=== PATIENT | female | born 1990 | race African-American/Black ===

== ENCOUNTER 2016-06-30 17:43 | Emergency (ER) | payer BC ==
--- NOTE | 2016-06-30 17:50 | ER Document Report ---
ED Medical Screen (RME) - General Stated Complaint: ABDOMINAL PAIN Time seen by provider: 17:50 Mode of Arrival: Medic Information source: Patient Notes: 25-year-old female with sudden onset of right crampy middle and right lower quadrant abdominal pain since 2:30. It became more intense since sharper at times. LMP this week. Eyes . Gave her the urge to urinate. She had a bowel movement which did not help the pain. She also made herself vomit which did not help. She is nauseated. No history of kidney stones. Looks very uncomfortable with this crampy pain, and is having trouble sitting still. I have consulted with the supervisory physician Dr. Roa per [facility] Guidelines. I have greeted and performed a rapid initial assessment of this patient. A comprehensive ED assessment, evaluation of the patient, analysis of test results , and completion of the medical decision making process will be contacted by additional ED providers. TRAVEL OUTSIDE OF THE [place] IN LAST 30 DAYS: No - Related Data Allergies/Adverse Reactions: No Known Allergies Allergy (Verified 06/30/16 18:01) Past Medical History - Past Medical History Cardiac Medical History: Reports: Hx Hypertension - pregannt Denies: Hx Atrial Fibrillation, Hx Congestive Heart Failure, Hx Coronary Artery Disease, Hx Heart Attack, Hx Hypercholesterolemia, Hx Peripheral Vascular Disease, Hx Pulmonary Embolism, Hx Heart Murmur Pulmonary Medical History: Reports: Hx Asthma Denies: Hx Sleep Apnea, Hx Tuberculosis Neurological Medical History: Denies: Hx Cerebrovascular Accident, Hx Seizures Endocrine Medical History: Reports: Hx Diabetes Mellitus Type 2 - diabetes Renal/ Medical History: Denies: Hx Kidney Stones GI Medical History: Denies: Hx Crohn's Disease, Hx Gastroesophageal Reflux Disease, Hx Hiatal Hernia, Hx Irritable Bowel, Hx Liver Failure, Hx Ulcer Musculoskeltal Medical History: Denies Hx Fibromyalgia Traumatic Medical History: Denies: Hx Fractures Infectious Medical History: Past Surgical History: Reports: Hx Appendectomy, Hx Section - x3, Hx Cholecystectomy, Hx Tonsillectomy. Denies: Hx Bowel Surgery, Hx Colostomy, Hx Coronary Artery Bypass Graft, Hx Gastric Bypass Surgery, Hx Herniorrhaphy, Hx Mastectomy, Hx Pacemaker, Hx Tubal Ligation - Immunizations Immunizations up to date: Yes Hx Diphtheria, Pertussis, Tetanus Vaccination: No Physical Exam - Vital signs Vitals: Temp Pulse Resp BP Pulse Ox 97.9 F 90 20 123/94 H 99 06/30/16 17:54 06/30/16 17:54 06/30/16 17:54 06/30/16 17:54 06/30/16 17:54 Course - Vital Signs Vital signs: Temp Pulse Resp BP Pulse Ox 97.9 F 90 20 123/94 H 99 06/30/16 17:54 06/30/16 17:54 06/30/16 17:54 06/30/16 17:54 06/30/16 17:54
[2016-06-30] MEDS ORDERED: OXYCODONE-ACETAMINOPHEN 5-325 MG TABLET PO ONE (17:53)
[2016-06-30] MEDS ORDERED: ONDANSETRON 4 MG TAB.RAPDIS PO ONE (17:53)
[2016-06-30] MEDS ORDERED: KETOROLAC TROMETHAMINE 60 MG/2 ML SDV IM ONE (17:55)
[2016-06-30 18:31] LABS: ABSOLUTE BASOPHILS # (AUTO) 0.1 10^3/uL (0.0-0.2); ABSOLUTE EOSINOPHILS # (AUTO) 0.4 10^3/uL (0.0-0.6); ABSOLUTE LYMPHOCYTES (AUTO) 2.5 10^3/uL (0.5-4.7); ABSOLUTE MONOCYTES (AUTO) 0.6 10^3/uL (0.1-1.4); ABSOLUTE NEUT (AUTO) 9.5 10^3/uL (1.7-8.2); BASOPHILS % (AUTO) 0.5 % (0-2); HEMATOCRIT 43.8 % (36.0-47.0); HEMOGLOBIN 14.5 g/dL (12.0-15.5); HGB HCT DIFFERENCE -0.3; LYMPHOCYTES % (AUTO) 19.3 % (13-45); MEAN CORPUSCULAR HEMOGLOBIN 28.5 pg (27.0-33.4); MEAN CORPUSCULAR VOLUME 87 fl (80-97); MONOCYTES % (AUTO) 4.9 % (3-13); RED BLOOD COUNT 5.06 10^6/uL (3.72-5.28); RED CELL DISTRIBUTION WIDTH 13.6 % (11.5-14.0); SEGMENTED NEUTROPHILS % (AUTO) 72.3 % (42-78); WHITE BLOOD COUNT 13.1 10^3/uL (4.0-10.5)
[2016-06-30 18:36] LABS: APPEARANCE,URINE SLIGHTLY-CLOUDY; BILIRUBIN,URINE NEGATIVE (NEGATIVE); GLUCOSE, URINE NEGATIVE (NEGATIVE); KETONES,URINE NEGATIVE (NEGATIVE); LEUKOCYTE ESTERASE,URINE NEGATIVE (NEGATIVE); NITRITE,URINE NEGATIVE (NEGATIVE); PROTEIN,URINE NEGATIVE (NEGATIVE); URINE SPECIFIC GRAVITY 1.018; UROBILINOGEN,URINE NEGATIVE mg/dL (<2.0)
[2016-06-30 18:54] LABS: ALANINE AMINOTRANSFERASE 27 U/L (9-52); ALBUMIN 3.9 g/dL (3.5-5.0); ALKALINE PHOSPHATASE 63 U/L (38-126); ANION GAP 10 (5-19); ASPARTATE AMINO TRANSFERASE 17 U/L (14-36); BILIRUBIN,TOTAL 0.5 mg/dL (0.2-1.3); BLOOD UREA NITROGEN 14 mg/dL (7-20); CARBON DIOXIDE 25 mmol/L (22-30); CHLORIDE 107 mmol/L (98-107); CREATININE RESULT 0.81 mg/dL (0.52-1.25); GLUCOSE 107 mg/dL (75-110); POTASSIUM 4.1 mmol/L (3.6-5.0); SODIUM 141.7 mmol/L (137-145); TOTAL PROTEIN 6.5 g/dL (6.3-8.2)
--- NOTE | 2016-06-30 19:41 | ER Document Report ---
ED GI/ - General Chief Complaint: Abdominal Pain Stated Complaint: ABDOMINAL PAIN Mode of Arrival: Medic Notes: Patient is experiencing severe abdominal pains that began about 4 PM this afternoon. As they are sharp pains and located mostly in the right upper quadrant and sometimes radiate down into the right lower quadrant of the abdomen. She did not have any nausea or vomiting, but induced vomiting to see if it might help her pain. She also had a bowel movement this afternoon, but that did not help either. Denies UTI symptoms. Denies URI symptoms. Does not have any fevers. Patient had her gallbladder removed 5 years ago. She's had a couple of episodes like this in the past and no one has been able to find out a cause for these episodes. Patient is also had a tubal ligation. 3 C-sections. TRAVEL OUTSIDE OF THE [place] IN LAST 30 DAYS: No - Related Data Allergies/Adverse Reactions: No Known Allergies Allergy (Verified 06/30/16 18:01) Past Medical History - General Information source: Patient - Social History Smoking Status: Current Every Day Smoker Cigarette use (# per day): Yes Chew tobacco use (# tins/day): No Frequency of alcohol use: None Drug Abuse: None Family History: Arthritis, CAD, CVA, DM, Hyperlipidemia, Hypertension, Malignancy Patient has suicidal ideation: No Patient has homicidal ideation: No - Past Medical History Cardiac Medical History: Reports: Hx Hypertension - pregannt Pulmonary Medical History: Reports: Hx Asthma Endocrine Medical History: Reports: Hx Diabetes Mellitus Type 2 - diabetes GI Medical History: Musculoskeltal Medical History: Infectious Medical History: Past Surgical History: Reports: Hx Section - x3, Hx Cholecystectomy, Hx Tonsillectomy - Immunizations Immunizations up to date: Yes Hx Diphtheria, Pertussis, Tetanus Vaccination: No Hx Pneumococcal Vaccination: 03/03/10 Review of Systems - Review of Systems Notes: REVIEW OF SYSTEMS: CONSTITUTIONAL : Denies fever. EENT: Denies eye, ear, nose or mouth or throat pain or other symptoms except patient says that she had a fractured tooth in the right upper mouth that broke apart and drained some pus a few days ago. She has an appointment to be seen by a dentist for this condition later this coming week. No significant swelling of the gum or anything to suggest a current abscess collection. CARDIOVASCULAR: Denies chest pain. RESPIRATORY: Denies cough, chest congestion, or shortness of breath. GASTROINTESTINAL: See history of present illness. GENITOURINARY: Denies difficulty or painful urinating, urinary frequency, blood in urine. MUSCULOSKELETAL: Denies back or neck pain. Denies joint pain or swelling. SKIN: Denies rash or skin lesions. ALL OTHER SYSTEMS REVIEWED AND NEGATIVE. Physical Exam - Vital signs Vitals: Temp Pulse Resp BP Pulse Ox 97.9 F 90 20 123/94 H 99 06/30/16 17:54 06/30/16 17:54 06/30/16 17:54 06/30/16 17:54 06/30/16 17:54 Interpretation: Normal - Notes Notes: PHYSICAL EXAMINATION: GENERAL: Well-appearing, in no acute distress. Vital signs are all normal. Patient seems comfortable at this time. She received an injection of 60 mg of Toradol IM, 2 Zofran 4 mg by mouth, and 2 Percocets when she was assessed by the nurse practitioner initially. NECK: Normal range of motion, supple. LUNGS: Breath sounds clear and equal bilaterally. HEART: Regular rate and rhythm without murmurs. ABDOMEN: Soft, mild tenderness in the right upper quadrant, but no guarding or rebound. No real significant tenderness in the right lower quadrant. BACK: No tenderness throughout entire back. EXTREMITIES: Normal range of motion without pain. NEUROLOGICAL: Normal speech, normal gait. Normal sensory, motor, and reflex exams. Awake, alert, and oriented x3. SKIN: Warm, dry, no rashes. Course - Vital Signs Vital signs: Temp Pulse Resp BP Pulse Ox 97.9 F 90 20 123/94 H 99 06/30/16 17:54 06/30/16 17:54 06/30/16 17:54 06/30/16 17:54 06/30/16 17:54 - Laboratory Result Diagrams: 06/30/16 18:05 06/30/16 18:05 Laboratory results interpreted by me: 06/30/16 18:05 WBC 13.1 H Absolute Neutrophils 9.5 H 06/30/16 19:59 Leukocytosis of 13,100 noted. - Diagnostic Test Radiology reviewed: Image reviewed, Reports reviewed - CT scan of the abdomen and pelvis without contrast showed no abnormalities. A normal appendix is visualized. Gallbladder is surgically absent. No other significant findings. Discharge - Discharge Clinical Impression: Abdominal pain Qualifiers: Abdominal location: right upper quadrant Qualified Code(s): R10.11 - Right upper quadrant pain Condition: Stable Disposition: HOME, SELF-CARE Additional Instructions: ABDOMINAL PAIN: There are many causes of abdominal pain. Pain can mean a serious problem requiring surgery (such as appendicitis). It can also be an innocent problem that goes away on its own (such as a viral infection). Often, time must pass to determine the cause of pain. The physician does not feel that hospitalization is necessary, at present. Things may change within the next 24 hours. Call the doctor or come back for re- examination if any problems occur, such as: (1) Pain that becomes more severe, steady, or becomes concentrated in one specific area. Also, pain that is more severe with movement or coughing. (2) Vomiting that persists or becomes more frequent. (3) Blood in the vomitus, urine, or bowel movements. Blood in the stool may have a tarry or black appearance. (4) Shaking chills or fever greater than 100 degrees F. (5) The abdomen becomes more distended or swollen. (6) Bowel movements cease. (7) Failure to improve as expected. NORMAL EXAM AND WORKUP: At this time, except for a slight elevation in your white cell count called leukocytosis, your examination and workup show no significant abnormality. No significant abnormal physical findings are noted. All laboratory, EKG, and imaging (x-ray, CT scans, ultrasound) studies that were ordered show no significant abnormality. Although your examination and all studies that were ordered showed no significant abnormal finding, there are no examinations and no studies that are 100% accurate. There is always the possibility that some abnormality could exist and not be detected with physical examination or within the limits and capabilities of laboratory and other studies. You should return or follow up as you were instructed on your visit today for further evaluation if your symptoms do not resolve. Leukocytosis Leukocytosis is an elevation or increase in the number of white blood cells. Nearly all leukocytosis is due to one type of white blood cell, the polymorphonuclear leukocyte (PMN). These conditions are more accurately referred to as neutrophilia. The most common and important cause of neutrophilia is infection, and most infections cause neutrophilia. The degree of elevation often indicates the severity of the infection. Tissue damage from other causes raises the white count for similar reasons. Anand, infarction (cutting off the blood supply to a region of the body so that it dies), crush injuries, inflammatory diseases, poisonings, and severe diseases, like kidney failure and diabetic ketoacidosis, all cause neutrophilia. Counts almost as high occur in leukemoid (leukemia-like) reactions caused by infection and non-infectious inflammation. Drugs can also cause leukocytosis. Cortisone-like drugs prednisone, lithium , and NSAIDs are the most common offenders. Non-specific stresses also cause white blood cells to increase in the blood. Extensive testing of medical students reveals that neutrophilia accompanies every examination. Vigorous exercise and intense excitement also cause elevated white blood cell counts. TORADOL INJECTION: You have been given an injection of ketorolac tromethamine (Toradol). This is an excellent, safe drug for pain control. It also has potent antiinflammatory action. You should have significant pain relief within about one hour. Toradol is not addicting and is non-sedating. It does not interfere with driving or work. Call or return if you develop itching, hives, shortness of breath, or rash. ANTINAUSEA MEDICATION: You have been given a medication to suppress nausea and vomiting. This type of medication can be given as a shot, pill, or suppository. It will usually last for many hours. Pills and shots usually last six to eight hours, suppositories last about 12 hours. For the typical illness, only one or two doses of the medication may be necessary. Mild lightheadedness may occur. This type of medicine can cause drowsiness. Do not drive or operate dangerous machinery while under its influence. Do not mix with alcohol. See your doctor at once if you have muscle spasms or tightness, or uncontrollable motions (particularly of the neck, mouth, or jaw). Persistent vomiting or severe lightheadedness should also be evaluated by the physician. ORAL NARCOTIC MEDICATION: You have been given a prescription for pain control. This medication is a narcotic. It's best taken with food, as nausea can result if taken on an empty stomach. Don't operate machinery or drive within six hours of taking this medication. Do not combine this medicine with alcohol, or with any medication which can cause sedation (such as cold tablets or sleeping pills) unless you get permission from the physician. Narcotics tend to cause constipation. If possible, drink plenty of fluids and eat a diet high in fiber and fruits. FOLLOW-UP CARE: If you have been referred to a physician for follow-up care, call the physician s office for an appointment as you were instructed or within the next two days. If you experience worsening or a significant change in your symptoms, notify the physician immediately or return to the Emergency Department at any time for re-evaluation. Your CT scan was completely normal without any evidence of any abnormality requiring hospitalization or surgery. The only lab test that was abnormal was a slight elevation in your white cell count, perhaps due to some infection in your body. However, with the normal CT scan, I feel that you can be discharged home with pain medication and see how you do over the next day or 2. If you or no better on Saturday, return for us to reassess your condition. If you will get worse between now and Saturday, return for us to reassess your condition. Prescriptions: Oxycodone HCl/Acetaminophen [Percocet 5-325 mg Tablet] 1 - 2 tab PO Q4HP PRN # 15 tablet PRN Reason: Promethazine HCl [Phenergan 25 mg Tablet] 1 - 2 tab PO Q6HP PRN #15 tablet PRN Reason: Forms: Return to Work
[2016-06-30 19:56] VITALS: BP 122/81
== END 2016-06-30 19:58 | disposition home or self-care (01) ==
LOC: ER 17:43
DX: R10.11 Right upper quadrant pain (principal); R10.31 Right lower quadrant pain; F17.210 Nicotine dependence, cigarettes, uncomplicated; E11.9 Type 2 diabetes mellitus without complications; Z98.51 Tubal ligation status; Z90.49 Acquired absence of other specified parts of digestive tract
CPT/HCPCS: 99284; 96372; 36415; 87086; 83690; 84703; 85025; 80053; 81001; 76380; J1885; S0119

== ENCOUNTER 2016-09-22 04:56 | Emergency (ER) | payer BC ==
[2016-09-22 05:35] LABS: ABSOLUTE EOSINOPHILS # (AUTO) 0.3 10^3/uL (0.0-0.6); ABSOLUTE LYMPHOCYTES (AUTO) 2.3 10^3/uL (0.5-4.7); ABSOLUTE MONOCYTES (AUTO) 0.7 10^3/uL (0.1-1.4); ABSOLUTE NEUT (AUTO) 2.7 10^3/uL (1.7-8.2); BASOPHILS % (AUTO) 0.6 % (0-2); EOSINOPHILS % (AUTO) 4.4 % (0-6); HEMATOCRIT 38.3 % (36.0-47.0); HEMOGLOBIN 12.8 g/dL (12.0-15.5); HGB HCT DIFFERENCE 0.1; LYMPHOCYTES % (AUTO) 38.2 % (13-45); MEAN CORPUSCULAR HEMOGLOBIN 28.9 pg (27.0-33.4); MEAN CORPUSCULAR HGB CONC 33.5 g/dL (32.0-36.0); MEAN CORPUSCULAR VOLUME 86 fl (80-97); MONOCYTES % (AUTO) 10.9 % (3-13); RED BLOOD COUNT 4.43 10^6/uL (3.72-5.28); RED CELL DISTRIBUTION WIDTH 13.8 % (11.5-14.0); SEGMENTED NEUTROPHILS % (AUTO) 45.9 % (42-78)
[2016-09-22 08:27] LABS: APPEARANCE,URINE TURBID; BILIRUBIN,URINE NEGATIVE (NEGATIVE); GLUCOSE, URINE NEGATIVE (NEGATIVE); KETONES,URINE NEGATIVE (NEGATIVE); LEUKOCYTE ESTERASE,URINE TRACE (NEGATIVE); NITRITE,URINE NEGATIVE (NEGATIVE); PROTEIN,URINE NEGATIVE (NEGATIVE); URINE SPECIFIC GRAVITY 1.034; UROBILINOGEN,URINE NEGATIVE mg/dL (<2.0)
--- NOTE | 2016-09-22 08:44 | ER Document Report ---
ED General - General Chief Complaint: Rectal Pain Stated Complaint: BACK PAIN, HEADACHE Mode of Arrival: Ambulatory Information source: Patient Notes: Patient presents to the emergency department with complaints of upper and lower abdominal pain and rectal pain for the past 3-4 days. She also complains of vaginal pain for the for 1-2 days. She reports when she voids it feels irritated on the outside of her vaginal area. She denies vaginal bleeding. She reports pressure when she voids. She also complains of a headache for which she took Tylenol and didn't really help. She reports headache comes and goes. Patient reports she is approximately 7 weeks . She denies fever vomiting diarrhea. She denies trauma. TRAVEL OUTSIDE OF THE [place] IN LAST 30 DAYS: No - HPI Patient complains to provider of: patient presents to emergency department with complaints of abdominal pain Onset: Other - 3-4 days Onset/Duration: Waxing and waning Quality of pain: Achy, Other - sore Severity: Severe Pain Level: 4 Associated symptoms: None Exacerbated by: Other - voiding Relieved by: Denies Similar symptoms previously: No Recently seen / treated by doctor: No - Related Data Allergies/Adverse Reactions: No Known Allergies Allergy (Verified 06/30/16 18:01) Past Medical History - General Information source: Patient Last Menstrual Period: 07/25/16 - Social History Smoking Status: Never Smoker Cigarette use (# per day): No Frequency of alcohol use: None Drug Abuse: None Lives with: Family Family History: Arthritis, CAD, CVA, DM, Hyperlipidemia, Hypertension, Malignancy Patient has suicidal ideation: No Patient has homicidal ideation: No - Past Medical History Cardiac Medical History: Reports: Hx Hypertension - pregannt Denies: Hx Atrial Fibrillation, Hx Congestive Heart Failure, Hx Coronary Artery Disease, Hx Heart Attack, Hx Hypercholesterolemia, Hx Peripheral Vascular Disease, Hx Pulmonary Embolism, Hx Heart Murmur Pulmonary Medical History: Reports: Hx Asthma Denies: Hx Sleep Apnea, Hx Tuberculosis Neurological Medical History: Denies: Hx Cerebrovascular Accident, Hx Seizures Endocrine Medical History: Reports: Hx Diabetes Mellitus Type 2 - diabetes Renal/ Medical History: Denies: Hx Kidney Stones, Hx Peritoneal Dialysis GI Medical History: Denies: Hx Crohn's Disease, Hx Gastroesophageal Reflux Disease, Hx Hiatal Hernia, Hx Irritable Bowel, Hx Liver Failure, Hx Ulcer Musculoskeltal Medical History: Denies Hx Fibromyalgia Traumatic Medical History: Denies: Hx Fractures Infectious Medical History: Past Surgical History: Reports: Hx Appendectomy, Hx Section - x3, Hx Cholecystectomy, Hx Tonsillectomy. Denies: Hx Bowel Surgery, Hx Colostomy, Hx Coronary Artery Bypass Graft, Hx Gastric Bypass Surgery, Hx Herniorrhaphy, Hx Mastectomy, Hx Pacemaker, Hx Tubal Ligation - Immunizations Immunizations up to date: Yes Hx Diphtheria, Pertussis, Tetanus Vaccination: No Hx Pneumococcal Vaccination: 03/03/10 Review of Systems - Review of Systems Notes: Review HPI for review of systems., All other systems negative Physical Exam - Vital signs Vitals: Temp Pulse Resp BP Pulse Ox 98.5 F 75 18 127/57 H 100 09/22/16 05:09 09/22/16 05:09 09/22/16 05:09 09/22/16 05:09 09/22/16 05:09 - Notes Notes: PHYSICAL EXAMINATION: GENERAL: Well-appearing and in no acute distress HEAD: Atraumatic, normocephalic. EYES: Pupils equal round , extraocular movements intact, sclera anicteric, conjunctiva are normal. ENT: nares patent, . Moist mucous membranes. NECK: Normal range of motion, supple without lymphadenopathy LUNGS: CTAB and equal. No wheezes rales or rhonchi. HEART: Regular rate and rhythm without murmurs ABDOMEN: Soft, no tenderness. No guarding, no rebound EXTREMITIES: Normal range of motion, no pitting edema. No cyanosis. NEUROLOGICAL: Cranial nerves grossly intact. Normal sensory/motor exams. PSYCH: Normal mood, normal affect. SKIN: Warm, Dry, normal turgor, no rashes or lesions noted - Genitourinary External exam: Normal. No: Lesions, Laceration Speculum exam: Vaginal discharge Vaginal bleeding: None Bimanuel exam: Normal Course - Vital Signs Vital signs: Temp Pulse Resp BP Pulse Ox 98.1 F 64 16 133/82 H 100 09/22/16 10:36 09/22/16 10:36 09/22/16 10:36 09/22/16 10:36 09/22/16 10:36 - Laboratory Result Diagrams: 09/22/16 05:19 09/22/16 05:19 Laboratory results interpreted by me: 09/22/16 09/22/16 05:19 07:16 Chloride 110 H Carbon Dioxide 21 L Glucose 118 H Ur Leukocyte Esterase TRACE H - Diagnostic Test Radiology reviewed: Image reviewed, Reports reviewed - Diagnostic report text EXAM DESCRIPTION: U/S OB TRANSVAGINAL W/O DOP COMPLETED DATE/TIME: 2016 9:52 am REASON FOR STUDY: abd pain COMPARISON: None. TECHNIQUE: Dynamic and static grayscale images acquired of the pelvis via transvaginal approach and recorded on PACS. Additional selected color Doppler and spectral images recorded. LIMITATIONS: None. FINDINGS: UTERUS: Contour normal. No mass. ENDOMETRIAL STRIPE: No focal or generalized thickening. No masses. CERVIX: No nabothian cysts. RIGHT OVARY: No abnormal masses. RIGHT OVARY DOPPLER: Normal arterial vascular flow without evidence for torsion. LEFT OVARY : 2.1 x 2.0 x 1.6 cm likely hemorrhagic cyst. 1.2 cm paraovarian cyst. LEFT OVARY DOPPLER: Normal arterial vascular flow without evidence for torsion. FREE FLUID: None noted. OTHER: No other significant finding. MEASUREMENTS: UTERUS: 8.1 x 5.1 x 4.0 cm ENDOMETRIAL STRIPE: 11 mm RIGHT OVARY: 2.5 x 1.4 x 1.7 cm LEFT OVARY: 3.3 x 3.9 x 1.8 cm TECHNICAL DOCUMENTATION: JOB ID: [id number]- All Rights Reserved US/U/S OB TRANSVAGINAL W/O DOP IMPRESSION: 2.1 cm mass left ovary likely hemorrhagic cyst. 1.2 cm paraovarian cyst on the left Procedures - Pelvic Exam Pelvic exam Cultures obtained: Yes Wet prep obtained: Yes Herpes culture obtained: No POC sent to lab: No Foreign body removed: No Bimanual exam performed: Yes Witnessed by: isabelle christophergarment patternmaker - Discharge Clinical Impression: Bacterial vaginosis, Yeast infection, Rectal pain, Ovarian cyst, Elevated blood pressure reading Condition: Stable Disposition: HOME, SELF-CARE Instructions: Metronidazole ([facility]), Vaginal Yeast Infection ([facility]), Vaginosis, Bacterial ([facility]), [facility] ([facility]), [facility] Additional Instructions: *You have been evaluated for rectal pain, headache, vaginal irritation, bacterial vaginosis, yeast infection, ovarian cyst *Your lab and US shows that you are not *Take medication as prescribed *Apply monostat as directed *Follow up with your DENITRATOR OPERATOR or the health department for recheck *Avoid sexual intercourse until follow up *Return to ED for worsening condition, changes, needs Prescriptions: Fluconazole [Diflucan] 150 mg PO ONCE PRN #1 tablet PRN Reason: Metronidazole [Flagyl 500 mg Tablet] 500 mg PO BID #14 tablet Forms: Elevated Blood Pressure
[2016-09-22] MEDS ORDERED: ACETAMINOPHEN 325 MG TABLET PO ONE (09:02)
[2016-09-22 09:11] LABS: ALANINE AMINOTRANSFERASE 30 U/L (9-52); ALBUMIN 3.8 g/dL (3.5-5.0); ALKALINE PHOSPHATASE 61 U/L (38-126); ANION GAP 14 (5-19); ASPARTATE AMINO TRANSFERASE 22 U/L (14-36); BILIRUBIN,DIRECT 0.1 mg/dL (0.0-0.4); BILIRUBIN,TOTAL 0.5 mg/dL (0.2-1.3); BLOOD UREA NITROGEN 15 mg/dL (7-20); CARBON DIOXIDE 21 mmol/L (22-30); CHLORIDE 110 mmol/L (98-107); CREATININE RESULT 0.83 mg/dL (0.52-1.25); GLUCOSE 118 mg/dL (75-110); SODIUM 144.5 mmol/L (137-145); TOTAL PROTEIN 6.7 g/dL (6.3-8.2)
[2016-09-22 10:37] VITALS: BP 133/82
[2016-09-22 10:43] LABS: CHLAM PCR NOT DETECTED (NOT DETECT)
[2016-09-22] MEDS ORDERED: FLUCONAZOLE 100 MG TABLET PO ONE (10:57)
== END 2016-09-22 11:44 | disposition home or self-care (01) ==
LOC: ER 04:56
DX: N76.0 Acute vaginitis (principal); B37.9 Candidiasis, unspecified; K62.89 Other specified diseases of anus and rectum; N83.209 Unspecified ovarian cyst, unspecified side; R03.0 Elevated blood-pressure reading, without diagnosis of hypertension; M54.9 Dorsalgia, unspecified; R51 Headache; R10.30 Lower abdominal pain, unspecified
CPT/HCPCS: 36415; 76817; 80053; 81001; 82272; 84702; 84703; 85025; 87210; 87491; 87591; 99284

== ENCOUNTER 2016-10-06 01:18 | Emergency (ER) | payer BC, MEDICAID ==
[2016-10-06 01:27] VITALS: BP 135/67
== END 2016-10-06 03:40 | disposition left against medical advice (07) ==
LOC: ER 01:18
DX: Z53.21 Procedure and treatment not carried out due to patient leaving prior to being seen by health care provider (principal)

== ENCOUNTER 2016-10-26 22:51 | Emergency (ER) | payer BC, MEDICAID ==
[2016-10-26] MEDS ORDERED: METOCLOPRAMIDE HCL INJ/PF 10 MG/2 ML SDV IV ONE (23:30)
[2016-10-26] MEDS ORDERED: NORMAL SALINE 500 ML IV ONE (23:31)
--- NOTE | 2016-10-26 23:34 | ER Document Report ---
ED General - General Chief Complaint: Vaginal Bleeding Stated Complaint: CHEST PAIN,ABDOMINAL PAIN,VOMITING Time Seen by Provider: 10/26/16 23:25 Notes: Patient is a 25-year-old female presents with complaint of abdominal pain, cramping, vomiting, and vaginal bleeding for 2-3 days. This is her fourth . She has 3 live children at home. Her last menstrual period was 14 weeks ago. She said that she did [facility] a [facility] a [facility]. She says ultrasound was done but the results have not yet been released. She says that she does have a history of a tubal ligation. No abnormal vaginal discharge. No dysuria. No fevers. No diarrhea. No other complaints at this time. She says that her appointment at the health department they told her that she had mild hypertension. No treatment has been started as of yet. No leg edema or swelling. TRAVEL OUTSIDE OF THE [place] IN LAST 30 DAYS: No - Related Data Allergies/Adverse Reactions: No Known Allergies Allergy (Verified 06/30/16 18:01) Past Medical History - General Last Menstrual Period: 07/2016 - Social History Smoking Status: Never Smoker Chew tobacco use (# tins/day): No Frequency of alcohol use: None Drug Abuse: None Family History: Arthritis, CAD, CVA, DM, Hyperlipidemia, Hypertension, Malignancy Patient has suicidal ideation: No Patient has homicidal ideation: No - Past Medical History Cardiac Medical History: Reports: Hx Hypertension - pregannt Denies: Hx Atrial Fibrillation, Hx Congestive Heart Failure, Hx Coronary Artery Disease, Hx Heart Attack, Hx Hypercholesterolemia, Hx Peripheral Vascular Disease, Hx Pulmonary Embolism, Hx Heart Murmur Pulmonary Medical History: Reports: Hx Asthma Denies: Hx Sleep Apnea, Hx Tuberculosis Neurological Medical History: Denies: Hx Cerebrovascular Accident, Hx Seizures Endocrine Medical History: Reports: Hx Diabetes Mellitus Type 2 - diabetes Renal/ Medical History: Denies: Hx Kidney Stones, Hx Peritoneal Dialysis GI Medical History: Denies: Hx Crohn's Disease, Hx Gastroesophageal Reflux Disease, Hx Hiatal Hernia, Hx Irritable Bowel, Hx Liver Failure, Hx Ulcer Musculoskeltal Medical History: Denies Hx Fibromyalgia Traumatic Medical History: Denies: Hx Fractures Infectious Medical History: Past Surgical History: Reports: Hx Appendectomy, Hx Section - x3, Hx Cholecystectomy, Hx Tonsillectomy, Hx Tubal Ligation. Denies: Hx Bowel Surgery , Hx Colostomy, Hx Coronary Artery Bypass Graft, Hx Gastric Bypass Surgery, Hx Herniorrhaphy, Hx Mastectomy, Hx Pacemaker - Immunizations Immunizations up to date: Yes Hx Diphtheria, Pertussis, Tetanus Vaccination: No Hx Pneumococcal Vaccination: 03/03/10 Review of Systems - Review of Systems Notes: My Normal Review Basic REVIEW OF SYSTEMS: CONSTITUTIONAL : Denies fever, chills, or sweats. Denies recent illness. EENT: Denies eye, ear, throat, or mouth pain or symptoms. Denies nasal or sinus congestion. RESPIRATORY: Denies cough, cold, or chest congestion. Denies shortness of breath, difficulty breathing, or wheezing. GASTROINTESTINAL: Crampy abdominal pain. Denies nausea, vomiting, or diarrhea. Denies constipation. Last BM: GENITOURINARY: Denies difficulty urinating, painful urination, burning, frequency, or blood in urine. FEMALE GENITOURINARY: Vaginal bleeding and . LMP: 14 weeks ago MUSCULOSKELETAL: Denies neck or back pain or joint pain or swelling. SKIN: Denies rash or skin lesions. NEUROLOGICAL: Denies altered mental status or loss of consciousness. Denies headache. Denies weakness or paralysis or loss of use of either side. Denies problems with gait or speech. Denies sensory or motor loss. ALL OTHER SYSTEMS REVIEWED AND NEGATIVE.Right Physical Exam - Vital signs Vitals: Temp Pulse Resp BP Pulse Ox 98.4 F 87 17 142/76 H 99 10/26/16 22:56 10/26/16 22:56 10/26/16 22:56 10/26/16 22:56 10/26/16 22:56 - Notes Notes: General Appearance: Well nourished, alert, cooperative, no acute distress, no obvious discomfort. Well-appearing. Vitals: reviewed, See vital signs table. Head: no swelling or tenderness to the head Eyes: PERRL, EOMI, Conjuctiva clear Mouth: No decreasd moisture Lungs: No wheezing, No rales, No rhonci, No accessory muscle use, good air exchange bilaterally. Heart: Normal rate, Regular rythm, No murmur, no rub Abdomen: Normal BS, soft, No rigidity, mild epigastric and suprapubic abdominal pain to palpation , No guarding, no rebound, no abdominal masses, no organomegaly Pelvic exam: Normal external genitalia. Some blood in vaginal vault. Cervical os is closed. Extremities: strength 5/5 in all extremities, good pulses in all extremities, no swelling or tenderness in the extremities, no edema. Skin: warm, dry, appropriate color, no rash Neuro: speech clear, oriented x 3, normal affect, responds appropriately to questions. Course - Vital Signs Vital signs: Temp Pulse Resp BP Pulse Ox 98.4 F 87 17 142/76 H 99 10/26/16 22:56 10/26/16 22:56 10/26/16 22:56 10/26/16 22:56 10/26/16 22:56 - Laboratory Result Diagrams: 10/26/16 23:45 10/26/16 23:45 Laboratory results interpreted by me: 10/26/16 23:45 Urine Protein 100 H Urine Blood LARGE H Urine Nitrite POSITIVE H Ur Leukocyte Esterase TRACE H - Transfer of Care Notes: 10/27/16 01:14 Patient says that she has had 2 positive urine test. Her blood test today is negative. Her quantitative hCG is less than 2. Time the patient either had false positive test or she had a very early that had a miscarriage and her quant is already down to 0. She has a follow-up appointment with her doctor on . Encouraged follow-up closely on with her doctor. Ultrasound was not performed because the patient's test was negative. Patient clinically looks well and is stable and I feel safe for discharge. She is encouraged to return to ER she has worsening pain, intractable vomiting, worsening bleeding, fevers, or feels. Patient's urinalysis did show positive nitrites and therefore I will place her on Macrobid. Dictation of this chart was performed using voice recognition software; therefore, there may be some unintended grammatical errors. 10/27/16 01:15 Discharge - Discharge Clinical Impression: Vaginal bleeding Vomiting Qualifiers: Vomiting type: unspecified Vomiting Intractability: unspecified Nausea presence : unspecified Qualified Code(s): R11.10 - Vomiting, unspecified UTI (urinary tract infection) Qualifiers: Urinary tract infection type: site unspecified Hematuria presence: without hematuria Qualified Code(s): N39.0 - Urinary tract infection, site not specified Condition: Good Disposition: HOME, SELF-CARE Additional Instructions: Please follow up with your doctor on for reevaluation and recheck of your test. Please return to the ER immediately if you have worsening pain, heavy bleeding, fevers, or feel unwell. Prescriptions: Metoclopramide HCl [Reglan 10 mg Tablet] 1 tab PO ASDIR PRN #25 tablet PRN Reason: Nitrofurantoin/Nitrofuran Mac [Macrobid 100 mg Capsule] 1 tab PO BID #14 capsule
[2016-10-27 00:09] LABS: ABSOLUTE EOSINOPHILS # (AUTO) 0.2 10^3/uL (0.0-0.6); ABSOLUTE LYMPHOCYTES (AUTO) 1.7 10^3/uL (0.5-4.7); ABSOLUTE MONOCYTES (AUTO) 0.6 10^3/uL (0.1-1.4); ABSOLUTE NEUT (AUTO) 3.9 10^3/uL (1.7-8.2); BASOPHILS % (AUTO) 0.6 % (0-2); EOSINOPHILS % (AUTO) 2.8 % (0-6); HEMATOCRIT 38.5 % (36.0-47.0); HEMOGLOBIN 12.9 g/dL (12.0-15.5); HGB HCT DIFFERENCE 0.2; LYMPHOCYTES % (AUTO) 26.6 % (13-45); MEAN CORPUSCULAR HGB CONC 33.4 g/dL (32.0-36.0); MEAN CORPUSCULAR VOLUME 87 fl (80-97); MONOCYTES % (AUTO) 8.6 % (3-13); RED BLOOD COUNT 4.44 10^6/uL (3.72-5.28); RED CELL DISTRIBUTION WIDTH 13.6 % (11.5-14.0); SEGMENTED NEUTROPHILS % (AUTO) 61.4 % (42-78); WHITE BLOOD COUNT 6.4 10^3/uL (4.0-10.5)
[2016-10-27 00:16] LABS: ALANINE AMINOTRANSFERASE 43 U/L (9-52); ALBUMIN 4.2 g/dL (3.5-5.0); ALKALINE PHOSPHATASE 57 U/L (38-126); ANION GAP 13 (5-19); ASPARTATE AMINO TRANSFERASE 23 U/L (14-36); BILIRUBIN,DIRECT 0.2 mg/dL (0.0-0.4); BILIRUBIN,TOTAL 0.4 mg/dL (0.2-1.3); BLOOD UREA NITROGEN 13 mg/dL (7-20); CALCIUM 9.7 mg/dL (8.4-10.2); CARBON DIOXIDE 24 mmol/L (22-30); CHLORIDE 107 mmol/L (98-107); CREATININE RESULT 0.89 mg/dL (0.52-1.25); GLUCOSE 93 mg/dL (75-110); POTASSIUM 4.2 mmol/L (3.6-5.0); SODIUM 143.8 mmol/L (137-145); TOTAL PROTEIN 7.3 g/dL (6.3-8.2)
[2016-10-27 00:18] LABS: APPEARANCE,URINE CLOUDY; BILIRUBIN,URINE NEGATIVE (NEGATIVE); GLUCOSE, URINE NEGATIVE (NEGATIVE); KETONES,URINE NEGATIVE (NEGATIVE); LEUKOCYTE ESTERASE,URINE TRACE (NEGATIVE); NITRITE,URINE POSITIVE (NEGATIVE); PROTEIN,URINE 100 mg/dL (NEGATIVE); URINE SPECIFIC GRAVITY 1.025; UROBILINOGEN,URINE NEGATIVE mg/dL (<2.0)
[2016-10-27] MEDS ORDERED: NITROFURANTOIN MONOHYD/M-CRYST 100 MG CAPSULE PO ONE (01:05)
[2016-10-27 01:23] VITALS: BP 119/64
[2016-10-27 01:44] LABS: CHLAM PCR NOT DETECTED (NOT DETECT)
== END 2016-10-27 01:22 | disposition home or self-care (01) ==
LOC: ER 22:51
DX: N39.0 Urinary tract infection, site not specified (principal); N93.9 Abnormal uterine and vaginal bleeding, unspecified; R07.9 Chest pain, unspecified; R10.9 Unspecified abdominal pain; R11.10 Vomiting, unspecified
CPT/HCPCS: 99284; 96361; 96374; 86900; 86901; 36415; 87210; 84702; 85025; 80053; 81001; 87491; 87591; J2765; J7040; J3490; J8499

== ENCOUNTER 2016-11-24 13:11 | Emergency (ER) | payer MEDICAID ==
[2016-11-24 13:15] VITALS: BP 139/91
== END 2016-11-24 15:47 | disposition left against medical advice (07) ==
LOC: ER 13:11
DX: Z53.21 Procedure and treatment not carried out due to patient leaving prior to being seen by health care provider (principal)

== ENCOUNTER 2017-01-02 20:46 | Emergency (ER) | payer MEDICAID ==
--- NOTE | 2017-01-02 21:00 | ER Document Report ---
ED Psych Disorder / Suicide - General Chief Complaint: Possible Overdose Stated Complaint: POSSIBLE OVERDOSE Time Seen by Provider: 01/02/17 20:52 Notes: The patient is a 26-year-old female, no past medical history, presents by EMS after she texted her friends that she took thirty 325 mg Tylenol tabs in an attempt to kill herself at 18:30 tonight. She has never had a suicide attempt before. She said that, "I just want to sleep forever." She will not elaborate any further on stressors in life or what caused her to take all the medications. Patient has nausea and is vomiting in the ER. She denies hallucinations, other substances ingested, hematemesis, back pain, diarrhea or constipation. TRAVEL OUTSIDE OF THE [place] IN LAST 30 DAYS: No - Related Data Allergies/Adverse Reactions: No Known Allergies Allergy (Verified 11/24/16 13:13) Past Medical History - General Information source: Patient - Social History Smoking Status: Unknown if Ever Smoked Family History: Arthritis, CAD, CVA, DM, Hyperlipidemia, Hypertension, Malignancy - Past Medical History Cardiac Medical History: Reports: Hx Hypertension - pregannt Denies: Hx Atrial Fibrillation, Hx Congestive Heart Failure, Hx Coronary Artery Disease, Hx Heart Attack, Hx Hypercholesterolemia, Hx Peripheral Vascular Disease, Hx Pulmonary Embolism, Hx Heart Murmur Pulmonary Medical History: Reports: Hx Asthma Denies: Hx Sleep Apnea, Hx Tuberculosis Neurological Medical History: Denies: Hx Cerebrovascular Accident, Hx Seizures Endocrine Medical History: Reports: Hx Diabetes Mellitus Type 2 - diabetes Renal/ Medical History: Denies: Hx Kidney Stones, Hx Peritoneal Dialysis GI Medical History: Denies: Hx Crohn's Disease, Hx Gastroesophageal Reflux Disease, Hx Hiatal Hernia, Hx Irritable Bowel, Hx Liver Failure, Hx Ulcer Musculoskeltal Medical History: Denies Hx Fibromyalgia Traumatic Medical History: Denies: Hx Fractures Infectious Medical History: Past Surgical History: Reports: Hx Appendectomy, Hx Section - x3, Hx Cholecystectomy, Hx Tonsillectomy, Hx Tubal Ligation. Denies: Hx Bowel Surgery , Hx Colostomy, Hx Coronary Artery Bypass Graft, Hx Gastric Bypass Surgery, Hx Herniorrhaphy, Hx Mastectomy, Hx Pacemaker - Immunizations Immunizations up to date: Yes Hx Diphtheria, Pertussis, Tetanus Vaccination: No Hx Pneumococcal Vaccination: 03/03/10 Review of Systems - Review of Systems Notes: REVIEW OF SYSTEMS: CONSTITUTIONAL: -fevers, -chills EENT: -eye pain, -difficulty swallowing, -nasal congestion CARDIOVASCULAR:-chest pain, -syncope. RESPIRATORY: -cough, -SOB GASTROINTESTINAL: -abdominal pain, +nausea, +vomiting, -diarrhea GENITOURINARY: -dysuria, -hematuria MUSCULOSKELETAL: -back pain, -neck pain SKIN: -rash or skin lesions. HEMATOLOGIC: -easy bruising or bleeding. LYMPHATIC: -swollen, enlarged glands. NEUROLOGICAL: -altered mental status or loss of consciousness, -headache, - neurologic symptoms PSYCHIATRIC: -anxiety, +depression. ALL OTHER SYSTEMS REVIEWED AND NEGATIVE. Physical Exam - Notes Notes: PHYSICAL EXAMINATION: GENERAL: Well-appearing, well-nourished and in no acute distress. HEAD: Atraumatic, normocephalic. EYES: Pupils equal round and reactive to light, extraocular movements intact, sclera anicteric, conjunctiva are normal. ENT: nares patent, oropharynx clear without exudates. Moist mucous membranes. NECK: Normal range of motion, supple without lymphadenopathy LUNGS: Breath sounds clear to auscultation bilaterally and equal. No wheezes rales or rhonchi. HEART: Regular rate and rhythm without murmurs ABDOMEN: Soft, nontender, normoactive bowel sounds. No guarding, no rebound. No masses appreciated. EXTREMITIES: Normal range of motion, no pitting or edema. No cyanosis. NEUROLOGICAL: Cranial nerves grossly intact. Normal speech, normal gait. Normal sensory and motor exams. PSYCH: Flat affect, suicidal thoughts and actions SKIN: Warm, Dry, normal turgor, no rashes or lesions noted. Course - Re-evaluation Re-evalutation: 26-year-old female intentionally overdosed on 9750 mg of Tylenol at 18:30 in a suicide attempt. IVC paperwork filled out. 01/02/17 22:58 Pt's 4 hour Tylenol level is 46, which is below the nomogram level to cause hepatotoxicity. She may have vomited the Tylenol prior to arrival and in the ER, but do not suspect that patient took as much Tylenol as she said she did. Her LFTs are normal. She does not require NAC at this time. Her UDS is positive for cocaine and THC. Will continue to monitor and have patient evaluated by mental health in the morning due to her suicidal actions. 01/02/17 23:38 Pt medically cleared for evaluation by Mental Health in the morning. - Laboratory Result Diagrams: 01/02/17 21:35 01/02/17 22:17 Laboratory results interpreted by me: 01/02/17 22:17 Salicylates < 1.0 L Acetaminophen 43 H - EKG Interpretation by Me EKG shows normal: Sinus rhythm, [place], Intervals, QRS Complexes, ST-T Waves Rate: Normal Discharge - Discharge Clinical Impression: Polysubstance abuse Suicide attempt by acetaminophen overdose Qualifiers: Encounter type: initial encounter Qualified Code(s): T39.1X2A - Poisoning by 4- Aminophenol derivatives, intentional self-harm, initial encounter Condition: Stable Disposition: PSYCH HOSP/UNIT
[2017-01-02] MEDS ORDERED: ONDANSETRON HCL INJ/PF 4 MG/2 ML SDV IV ONE (21:37)
[2017-01-02] MEDS ORDERED: NORMAL SALINE 1000 ML 1,000 ML IV ONE (21:37)
[2017-01-02 21:48] LABS: ABSOLUTE BASOPHILS # (AUTO) 0.1 10^3/uL (0.0-0.2); ABSOLUTE EOSINOPHILS # (AUTO) 0.2 10^3/uL (0.0-0.6); ABSOLUTE LYMPHOCYTES (AUTO) 2.4 10^3/uL (0.5-4.7); ABSOLUTE MONOCYTES (AUTO) 0.5 10^3/uL (0.1-1.4); ABSOLUTE NEUT (AUTO) 3.8 10^3/uL (1.7-8.2); BASOPHILS % (AUTO) 0.9 % (0-2); EOSINOPHILS % (AUTO) 2.4 % (0-6); HEMATOCRIT 38.1 % (36.0-47.0); HEMOGLOBIN 12.9 g/dL (12.0-15.5); HGB HCT DIFFERENCE 0.6; LYMPHOCYTES % (AUTO) 34.4 % (13-45); MEAN CORPUSCULAR HEMOGLOBIN 29.5 pg (27.0-33.4); MEAN CORPUSCULAR VOLUME 87 fl (80-97); MONOCYTES % (AUTO) 7.6 % (3-13); RED BLOOD COUNT 4.39 10^6/uL (3.72-5.28); RED CELL DISTRIBUTION WIDTH 13.6 % (11.5-14.0); SEGMENTED NEUTROPHILS % (AUTO) 54.7 % (42-78); WHITE BLOOD COUNT 6.9 10^3/uL (4.0-10.5)
[2017-01-02 22:43] LABS: APPEARANCE,URINE CLEAR; BILIRUBIN,URINE NEGATIVE (NEGATIVE); GLUCOSE, URINE NEGATIVE (NEGATIVE); KETONES,URINE NEGATIVE (NEGATIVE); LEUKOCYTE ESTERASE,URINE NEGATIVE (NEGATIVE); NITRITE,URINE NEGATIVE (NEGATIVE); PROTEIN,URINE NEGATIVE (NEGATIVE); UROBILINOGEN,URINE NEGATIVE mg/dL (<2.0)
[2017-01-02 22:52] LABS: ALANINE AMINOTRANSFERASE 22 U/L (9-52); ALBUMIN 3.6 g/dL (3.5-5.0); ALKALINE PHOSPHATASE 61 U/L (38-126); ANION GAP 10 (5-19); ASPARTATE AMINO TRANSFERASE 14 U/L (14-36); BILIRUBIN,DIRECT 0.3 mg/dL (0.0-0.4); BILIRUBIN,TOTAL 0.4 mg/dL (0.2-1.3); BLOOD UREA NITROGEN 12 mg/dL (7-20); CALCIUM 9.4 mg/dL (8.4-10.2); CARBON DIOXIDE 24 mmol/L (22-30); CHLORIDE 107 mmol/L (98-107); CREATININE RESULT 0.96 mg/dL (0.52-1.25); GLUCOSE 99 mg/dL (75-110); POTASSIUM 4.2 mmol/L (3.6-5.0); SODIUM 141.3 mmol/L (137-145); TOTAL PROTEIN 6.8 g/dL (6.3-8.2)
[2017-01-02 22:55] LABS: ALCOHOL < 10 mg/dL (NONE DETECTED)
[2017-01-02 23:01] LABS: URINE BARBITURATES SCREEN NEGATIVE; URINE METHADONE SCREEN NEGATIVE; URINE OPIATES LOW NEGATIVE; URINE PHENCYCLIDINE SCREEN NEGATIVE
--- NOTE | 2017-01-03 08:13 | EKG REPORT ---
SEVERITY:- NORMAL ECG - SINUS RHYTHM : Confirmed by: Kb Crowder MD 03-Jan-2017 08:11:30
[2017-01-03] MEDS ORDERED: OLANZAPINE 5 MG TABLET PO SCH (12:45)
--- NOTE | 2017-01-03 12:51 | ER Document Report ---
Doctor's Note Notes: 01/03/17 12:50 Patient resting comfortably on stretcher, watching television, and is at bedside , she reports feeling okay today, does that she took a large amount of Tylenol yesterday evening, states she is tired and overwhelmed, she does confirm that she was trying to kill herself, but did not think that Tylenol could be a lethal medication to overdose on, she has no history of this previously, therefore mental health team is seeking inpatient psychiatric treatment for patient in order to provide for safety and proper treatment, chart was reviewed including labs, vital signs and previous providers notes, patient is stable at this point in time with no complaints or needs
[2017-01-03] MEDS ORDERED: DIVALPROEX SODIUM 500 MG TAB.SR.24H PO SCH (13:00)
[2017-01-03] MEDS ORDERED: DIVALPROEX SODIUM 500 MG TAB.SR.24H PO ONE (15:00)
[2017-01-03] MEDS ORDERED: OLANZAPINE 5 MG TABLET PO ONE (15:00)
--- NOTE | 2017-01-03 16:35 | PSYCHOLOGICAL NOTE ---
Psych Note - Psych Note Psych Note: This clinician took phone call from patient's Aunt (Noe Anand [phone] cell), whom the precision lens polisher/clinician on duty today spoke to earlier. Aunt identified patient's mother is driving up from [place] at 0800 tomorrow (01/04/2017) morning, it is a [address], so mother should be to [facility] by 1300. She stated herself (Aunt) and mother will be here tomorrow for discharge. Mother will be taking patient back to [place] where the majority of family/natural supports are. Aunt acknowledged she has been in touch with 2 agencies in [place] for patient to follow up with. The [facility].
[2017-01-03] MEDS: DIVALPROEX SODIUM 500 MG TAB.SR.24H PO SCH (21:43)
[2017-01-03] MEDS: OLANZAPINE 5 MG TABLET PO SCH (21:44)
[2017-01-03] MEDS ORDERED: BENZTROPINE MESYLATE 1 MG TABLET PO SCH (22:00)
[2017-01-04] MEDS: OLANZAPINE 5 MG TABLET PO SCH (09:12)
[2017-01-04] MEDS: DIVALPROEX SODIUM 500 MG TAB.SR.24H PO SCH (09:12)
--- NOTE | 2017-01-04 10:04 | ER Document Report ---
Doctor's Note Notes: 01/04/17 10:02 This is a 26-year-old female that initially presented on January 02 just before 9 PM after taking a reported overdose of Tylenol (9750 mg). The patient had vomited prior to arrival in the ER. At the time, she was hemodynamically stable and her 4 hour level was in the sub-toxic zone. The patient did not require NAC. She was evaluated for depression and the plan is for the patient to be taken back to [place] by her mother. On physical exam this morning , the patient is alert and oriented 3. She is sitting up and eating applesauce. She denies any abdominal pain. Her abdomen is soft and nontender. She states she feels much better and denies any suicidal ideations at this time. Her mood looks good and she does smile at me. Her mother has already been here in the emergency room and is currently getting her clothes. Patient will follow-up with counseling in [place].
[2017-01-04 10:22] VITALS: BP 128/61
== END 2017-01-04 10:21 | disposition home or self-care (01) ==
LOC: ER 20:46
DX: T39.1X2A Poisoning by 4-Aminophenol derivatives, intentional self-harm, initial encounter (principal); R11.2 Nausea with vomiting, unspecified; F31.5 Bipolar disorder, current episode depressed, severe, with psychotic features; F19.10 Other psychoactive substance abuse, uncomplicated; Z63.5 Disruption of family by separation and divorce; J45.909 Unspecified asthma, uncomplicated; E11.9 Type 2 diabetes mellitus without complications
CPT/HCPCS: 93005; 99285; 96374; 36415; 80307 ×4; 84703; 85025; 80053; 81001; 93010; J3490 ×2; J2405; J7030